=== PATIENT | female | born 1935 | race Caucasian/White ===

== ENCOUNTER 2016-11-22 15:54 | Observation (INO) | payer MEDICARE ==
[~2016-11-22] VITALS: Ht 157.5 cm; Wt 50.2 kg
[~2016-11-22 15:54] MED LIST: ASPI-973 PO; AZTH50T PO; CITA20TA11 PO; LISI-567 PO; PRD2.5T PO; PYRI60TA PO; SERT20OR6 PO
[2016-11-22 15:58] VITALS: BP 119/83; PULSE 84; RESP 18; O2SAT 98
[2016-11-22] MEDS ORDERED: 0.9% Sodium Chloride 1,000 ML IV ONE (17:39)
--- NOTE | 2016-11-22 18:03 | DRSVH ---
PROCEDURE: CT BRAIN WITHOUT CONTRAST ([id number]) INDICATIONS: intermittent dizziness with headache TECHNIQUE: Noncontrast 4.5 mm thick angled axial sections acquired from the foramen magnum to the vertex, with c oronal reformats. COMPARISON: None. FINDINGS: Image quality: Motion is present on multiple sequences, limiting areas of fine detail evaluation. CSF spaces: Basal cisterns are patent. No extra-axial fluid collections. The ventricles are symmet thanh in size and shape. Brain: No intracranial bleeds or masses. There is cerebral volume loss for age, with resultant vent ricular and sulcal prominence. There are periventricular and deep white matter chronic small vessel ischemic changes. There is intracranial internal carotid artery atherosclerosis. Skull and face: Calvarium and visualized facial bones appear intact, without suspicious lesions. Sinuses: Visualized sinuses and mastoids are clear. IMPRESSION: 1. No acute intracranial process. 2. Moderate atrophy and chronic microvascular ischemic changes. Dictated by: Marielena Mccarthy M.D. on 11/22/2016 at 18:00 Approved by: Marielena Mccarthy M.D. on 11/22/2016 at 18:01
--- NOTE | 2016-11-22 18:27 | ED.REPORT ---
HPI-General Illness Date of Service Nov 22, 2016 ED Provider: Elder Lozano DO 80-year-old female w/ a hx of HTN and chronic pain presents for evaluation of dizziness and near syncope associated with abdominal pain. Evidently she has been suffering with intermittent dizziness for at least 5 months. Today she went out to get the mail when she felt like she is going to pass out. She had a brief episode of confusion. Since then she has had diffuse abdominal pain that she thinks is related to prior thoracic spine fractures. She did not actually pass out. She did not have any chest pain or shortness of breath however she does note upper abdominal pain. The daughter notes intermittent episodes of confusion and slurred speech for months. Nursing Notes Stated Complaint: DIZZINESS,SLURRED SPEECH,ALL OVER PAIN Chief Complaint: General Complaint Nursing Notes Reviewed: Yes Allergies: Coded Allergies: Estrogens (Verified Allergy, Unknown, PASSED OUT, 11/22/16) codeine (Verified Allergy, Unknown, 11/22/16) medroxyprogesterone (Verified Allergy, Unknown, PASSED OUT, 11/22/16) hydromorphone (Verified Adverse Reaction, Mild, DIZZY AND N/V, 11/22/16) Scheduled Azathioprine (Azathioprine) 50 Mg Tablet 50 MG PO BID Paroxetine (Paroxetine) 10 Mg Tablet 10 MG PO HS Potassium Chloride (Potassium Chloride) 10 Meq Tab.er.prt 10 MEQ PO DAILY TAKE WITH FOOD Pyridostigmine [place] (Pyridostigmine [place]) 60 Mg Tablet 60 MG PO QID Scheduled PRN Ibuprofen (Ibuprofen) 200 Mg Capsule 200-400 MG PO BID PRN PRN For Headache Meclizine (Bonine) 25 Mg Tab.chew 25 MG PO TID PRN PRN VERTIGO/NAUSEA General Time Seen by MD: 18:24 Chief Complaint Dizziness Hx Obtained From: Patient Arrived By: Walk-in Sudden in Onset?: No Onset Occurred: More than a week ago... (5 months) Symptom Duration: Since onset Location: : Abdomen Quality: Painful Severity: Current: Moderate Severity: Maximum: Moderate Past Medical History Past Medical History Hypertension History of osteoporosis Myasthenia Gravis Past Surgical History Right hip replacement Wrist surgery Detached retina repair Reports: Appendectomy, Hysterectomy, Tonsillectomy Smoking History Never Smoker Social History Pt lives alone Alcohol Use: Denies alcohol use Drug Use: Denies drug use Other Social History: Good social support Ambulatory Status Independent Review of Systems Full Review of Systems Constitutional: Denies: Chills, Fever, Lethargy Eyes: Denies: Blurred left, Blurred right Ears / Nose / Throat: Denies: Hearing loss bilateral Respiratory: Denies: Dyspnea on exertion, Hemoptysis Cardiovascular: Denies: Chest pain, Dyspnea on exertion GI: Reports: Abdominal pain, Denies: Nausea, Vomiting Female: Denies: Dysuria Musculoskeletal: Reports: Back pain Hematologic: Denies Adenopathy Endocrine: Denies: Cold intolerance, Heat intolerance Neurologic: Reports: Confusion, Dizziness, Slurred speech, Denies: Abnormal movement, Focal weakness, Headache, Numbness Psychiatric: Reports: Change mental status (daughter notices occasional slurred speech and is becoming more forgetful.) Complete sys rev & neg: except as marked. Physical Exam Vital Signs Vital Signs Date Time Temp Pulse Resp B/P Pulse Ox O2 Delivery O2 Flow Rate FiO2 11/22/16 22:30 36.7 70 16 126/82 97 Room Air 11/22/16 19:59 36.6 76 18 122/80 96 Room Air 11/22/16 15:58 36.0 84 18 119/83 98 Room Air Initial VS: Reviewed, Vital signs normal Head / Eyes: Atraumatic, Normocephalic, PERRL ENT: Mucous membranes moist, Conjunctiva normal, No scleral icterus Neck: Supple, Non-tender, Full range of motion Respiratory: Breath sounds normal, Clear to auscultation, No respiratory distress Cardiovascular: Regular rate & rhythm, Heart sounds normal, Intact distal pulses Back: No CVA tenderness Extremities: Vascular intact, Neuro intact, No swelling, No tenderness Skin: Warm, Dry, No cyanosis Psychiatric: Mood/affect normal, Behavior normal General/Constitutional: Awake, Alert, No acute distress, Well appearing, Cooperative, Not toxic appearing Abdomen: Atraumatic, Soft, No guarding, No rebound, No distention Tenderness/Guarding/Rebound: Positive: Tender LUQ... (Mild), Tender RUQ... ( Mild), Tender diffuse Organomegaly / Mass / Hernia: Negative: Aortic bruit, Hepatomegaly, Splenomegaly Neurologic: Oriented X3, Speech NL, No motor deficits, No sensory deficits, CN II - XII intact, Cerebellar NL, Memory NL, Gait NL Interpretation & Diagnostics Lab Results Interpretation Result Diagram: 11/23/16 0538 11/23/16 0538 Test 11/22/16 17:19 11/22/16 18:25 Urine Color [place] (YELLOW) Urine Appearance Turbid (CLEAR,HAZY) Urine pH Color interference Urine Specific [place] 1.032 (1.003-1.035) Urine Protein Color interferencemg/dL Urine Glucose (UA) Color interferencemg/dL Urine Ketones Color interferencemg/dL Urine Occult Blood Color interference Urine Nitrite Color interference Urine Bilirubin Color interference Urine Urobilinogen Color interferencemg/dL Urine Leukocyte Esterase Color interference Urine RBC 0-2/hpf (0-2) Urine WBC 0-5/hpf (0-5) Urine Epithelial Cells Moderate/hpf (NONE-MOD) Urine Crystals Oxalic acid crystals (NONE Urine Bacteria Few/hpf (NONE-FEW) Urine Hyaline Casts None/lpf (NONE) Urine Granular Casts None seen (NONE SEEN) Urine Waxy Casts None seen (NONE SEEN) Urine Red Blood Cell Casts None seen (NONE SEEN) Urine White Blood Cell Casts None seen (NONE SEEN) Urine Mucus None seen (None Seen) Urine Trichomonas None seen (NONE SEEN) Urine Yeast None (NONE SEEN) Urinalysis Comment Urine Culture Reflexed Not indicated Hold Urine Received (Received) Erythrocyte Sedimentation Rate 2mm/hr (0-40) D-Dimer 0.57mg/L FEU (<0.50) Troponin T < 0.010ug/L (0.0-0.011) C-Reactive Protein < 0.1mg/dL (0.0-0.5) Procalcitonin 0.06ng/mL (0.00-0.08) Hold Tiwari Top Tube Received (Received) ECG Interpretation ECG Interpretation: Sinus rhythm rate 68 Q waves inferiorly Nonspecific ST changes Time: 19:09 Interpreted by: ED physician Normal ECG Interpretation: No acute ischemic changes CT Head Interpretation IMPRESSION: 1. No acute intracranial process. 2. Moderate atrophy and chronic microvascular ischemic changes. Dictated by: Marielena Mccarthy M.D. on 11/22/2016 at 18:00 Approved by: Marielena Mccarthy M.D. on 11/22/2016 at 18:01 Study: Head CT no contrast Interpretation / Wet Read by: Interpret - Radiologist CT Chest Interpretation IMPRESSION: 1. No evidence of pulmonary embolism. 2. Nonspecific subcentimeter pulmonary nodules as above. Recommend interval followup as below. Fleischner Society criteria for lung nodule followup. Nodule size (mm)Low-risk patientHigh-risk patient<=4No follow-up needed.Follow-up at 12 months; if no change, no further follow-up.>6-3Joeitq-uq CT at 12 months; if no change, no further follow-up needed.Initial follow-up CT at 6-12 months, then 18-24 months if no change.>6-8Initial follow-up CT at 6-12 months, then 18-24 months if no change.Initial follow-up CT at 3-6 months, then 9-12 months and 24 months if no change.>8Follow-up CT at 3,9 and 24 months or PET and/or biopsySame as for low-risk patientsNon-solid (ground-glass) or partly solid nodules may require longer follow-up to exclude indolent adenocarcinoma. Dictated by: Marielena Mccarthy M.D. on 11/22/2016 at 22:01 Approved by: Marileena Mccarthy M.D. on 11/22/2016 at 22:08 Study type: CT pulm angiogram Interpretation / Wet Read by: Interpret - Radiologist CT Abd / Pelvis Interpretation IMPRESSION: 1. Nonspecific appearance of thickening within portions of the colon as above. While this could be secondary to incomplete distention, early appearance of colitis cannot be excluded. 2. Unchanged appearance of cystic and dystrophic calcifications within the liver and spleen. Dictated by: Marielena Mccarthy M.D. on 11/22/2016 at 22:13 Approved by: Marielena Mccarthy M.D. on 11/22/2016 at 22:19 Study type: Abdominal CT IV contrast, Abdom CT oral contrast Interpretation / Wet Read by: Interpret - Radiologist Re-Eval/Medical Decision Source of Hx: Old records Time of Eval: 22:55 Re-Evaluation/Progress Note: Pt rechecked. Informed pt of need for admission. Pt understands and agrees with plan for admission. All questions addressed. Consultation : Referral / Consult Name: Kayli Schmitz DO Consulted With: Hospitalist Call Returned at: 00:20 [employer]: Will see patient, Agrees with eval, Agrees with plan, Accepts admit Counseled Regarding: Diagnosis, Lab results, Need for admission Discharge & Departure Primary Impression: Near syncope Additional Impression: Colitis Disposition: ADMITTED TO HOSPITAL Discharge Condition All VS Reviewed: Yes Condition: Stable Referrals: Kentrell Munoz MD (PCP) Tish Attestation Portions of this note were transcribed by Jerad Serrano. I, Dr. Lozano personally performed the history, physical exam and medical decision-making; I reviewed and confirmed the accuracy of the information in the transcribed note. Signed by Tish Jha, 11/22/16 - 1914 copies to: Kentrell Munoz MD, Todd P DO Nov 22, 2016 18:27 JERAD SERRANO Nov 22, 2016 19:09 Elder Lozano DO Nov 22, 2016 18:27 JERAD SERRANO Nov 22, 2016 19:09
[2016-11-22 18:37] LABS: BASOPHILS % (AUTO) 0.1 % (0-3); EOSINOPHILS % (AUTO) 0.3 % (0-5); MONOCYTES % (AUTO) 6.5 % (4-12); Mean Corpuscular Hemoglobin 30.1 pg (27.0-35.0); Mean Corpuscular Volume 85.3 fL (81-100); NEUTROPHILS % (AUTO) 82.1 % (40-74); Platelet Count 166 bil/L (150-400)
[2016-11-22 18:56] LABS: ERYTHROCYTE SEDIMENTATION RATE 2 mm/hr (0-40)
[2016-11-22 19:22] LABS: TROPONIN T < 0.010 ug/L (0.0-0.011)
[2016-11-22] MEDS: Ondansetron 2 mg/mL 2 mL Inj IVPUSH PRN ×3 (19:48→21:26)
[2016-11-22] MEDS: fentaNYL-PF 50 mCg/mL 2 mL Inj IVPUSH PRN ×4 (19:48→20:52)
[2016-11-22 19:59] VITALS: BP 122/80; PULSE 76; RESP 18; O2SAT 96
[2016-11-22] MEDS ORDERED: Iohexol 300 mg/mL 30 mL Inj PO ONE (20:15)
[2016-11-22] MEDS ORDERED: fentaNYL-PF 50 mCg/mL 2 mL Inj IVPUSH ONE (20:55)
--- NOTE | 2016-11-22 22:09 | DRSVH ---
PROCEDURE: CT ANGIO CHEST PULMONARY EMBOLISM ([id number]) INDICATIONS: near syncope, chest and abdominal pain TECHNIQUE: After the administration of intravenous contrast, 2 mm thick sections acquired from the pulmonary api beto to the posterior costophrenic angles. 3-dimensional maximum intensity projection (MIP) coronal a nd sagittal reformats were then acquired through the thorax. For radiation dose reduction, the follo wing was used: automated exposure control, adjustment of mA and/or kV according to patient size. COMPARISON: [facility], CT, CT ABD PELVIS WO CON, 10/08/2015, 14:28. [facility], CT, CT ABD PELVIS W CON, 11/22/2016, 21:26. [facility], CT, CHEST WITH CONTRAST, 07/20/2008, 15:40. FINDINGS: Image quality: Excellent. Pulmonary arteries: Pulmonary arteries are normal in size, and demonstrate no intraluminal filling d efects to suggest central pulmonary embolism. Lungs and pleura: 4 mm nodular opacity is present in the medial right upper lobe, new compared to estefania or exam, seen on series 3 image 13. Pulmonary bulla is present in the right middle lobe, unchanged. 4 mm nodule opacity present in the left lower lobe on series 3 image 30, new compared to prior exam. N o pleural effusions or pneumothorax. Central and peripheral airways are patent. Mediastinum: Heart size is normal, without pericardial effusion. No mediastinal or hilar adenopathy . Thoracic aorta is normal in caliber and enhancement. Esophagus is normal in caliber, without hiat al hernia. Bones and chest wall: No suspicious bony lesions. Ribs appear intact throughout. Thoracic compress ion deformity is unchanged. Thyroid gland is unremarkable. No axillary or supraclavicular adenopathy . Abdomen: Unchanged appearance of dystrophic hepatic calcifications and low attenuation foci within t he anterior aspect. Splenic calcification is present. Otherwise, visualized upper abdominal solid org ans appear normal in the early arterial phase of enhancement. IMPRESSION: 1. No evidence of pulmonary embolism. 2. Nonspecific subcentimeter pulmonary nodules as above. Recommend interval followup as below. Fleischner Society criteria for lung nodule followup. Nodule size (mm)Low-risk patientHigh-risk patient<=4No follow-up needed.Follow-up at 12 months; if no change, no further follow-up.>2-3Ppluee-ee CT at 12 months; if no change, no further follow-up neede d.Initial follow-up CT at 6-12 months, then 18-24 months if no change.>6-8Initial follow-up CT at 6- 12 months, then 18-24 months if no change.Initial follow-up CT at 3-6 months, then 9-12 months and 24 months if no change.>8Follow-up CT at 3,9 and 24 months or PET and/or biopsySame as for low-risk patientsNon-solid (ground-glass) or partly solid nodules may require longer follow-up to exclude indolent adenocarcinoma. Dictated by: Marielena Mccarthy M.D. on 11/22/2016 at 22:01 Approved by: Marielena Mccarthy M.D. on 11/22/2016 at 22:08
--- NOTE | 2016-11-22 22:20 | DRSVH ---
PROCEDURE: CT ABDOMEN AND PELVIS WITH CONTRAST ([id number]) INDICATIONS: near syncope, chest and abdominal pain TECHNIQUE: After the administration of oral and intravenous contrast, 5 mm thick sections acquired from the diap hragms to the symphysis. 5 mm thick coronal and sagittal reformats were performed. For radiation do se reduction, the following was used: automated exposure control, adjustment of mA and/or kV accordi ng to patient size. COMPARISON: [facility], CT, CT ABD PELVIS WO CON, 10/08/2015, 14:28. FINDINGS: Image quality: Excellent. ABDOMEN: Lung bases: Lung bases are clear. Heart size is normal. Solid organs: Liver and spleen are normal in size. Low-attenuation foci as well as areas of calcific ation within the liver are unchanged. Splenic calcification are unchanged. Gallbladder is unremarkab le. Biliary system is non-dilated. Pancreas enhances normally. No adrenal nodules. Kidneys are no rmal in size and enhancement, without hydronephrosis. Bilateral renal cysts are present. Peritoneum and bowel: Stomach, small bowel, and colon loops are nonobstructed. There is appearance o f mild thickening within distal portions of the descending colon and extending to the transverse and proximal descending colon. Minimal diverticula are present. No pericolonic inflammatory change is cheikh ntified. Nodes and vessels: No retroperitoneal or mesenteric adenopathy. Aorta and inferior vena cava are no rmal in caliber. Miscellaneous: No ventral hernias. PELVIS: Genitourinary: Bladder wall thickness is normal. Portions of the lower pelvis and bladder are not w ell evaluated secondary to metallic streak artifact from right hip arthroplasty. Miscellaneous: No inguinal hernias or adenopathy. Bones: No suspicious bony lesions. L3 compression deformity is present, unchanged. IMPRESSION: 1. Nonspecific appearance of thickening within portions of the colon as above. While this could be se condary to incomplete distention, early appearance of colitis cannot be excluded. 2. Unchanged appearance of cystic and dystrophic calcifications within the liver and spleen. Dictated by: Marielena Mccarthy M.D. on 11/22/2016 at 22:13 Approved by: Marielena Mccarthy M.D. on 11/22/2016 at 22:19
[2016-11-22 22:30] VITALS: BP 126/82; PULSE 70; RESP 16; O2SAT 97
[2016-11-22] MEDS ORDERED: MECL-114 PO (23:23)
[2016-11-22] MEDS ORDERED: PARO10TA2 PO (23:24)
[2016-11-22] MEDS ORDERED: POTA10TA38 PO (23:24)
[2016-11-22] MEDS ORDERED: IBUP200C PO (23:24)
[2016-11-23] VITALS (11 sets, daily range): BP systolic 131–178; BP diastolic 62–85; PULSE 57–76; RESP 16–18; O2SAT 95–98
[2016-11-23] MEDS ORDERED: Alum-Mag Hydrox-Simeth 30 mL Suspension PO PRN (00:45)
[2016-11-23] MEDS ORDERED: Polyethylene Glycol (PEG) 17 Gm Powder PO PRN (00:50)
[2016-11-23 01:22] LABS: APPEARANCE,URINE TURBID (CLEAR,HAZY); COLOR,URINE ORANGE (YELLOW); OCCULT BLOOD,URINE COLOR INTERFERENCE (NEGATIVE); PH,URINE COLOR INTERFERENCE (5.0-8.0); UROBILINOGEN,URINE COLOR INTERFERENCE mg/dL (NORMAL)
[2016-11-23] MEDS ORDERED: Potassium Chloride 20 mEq SR Tablet PO ONE (01:30)
--- NOTE | 2016-11-23 01:30 | PCM.HPMED ---
Subjective Date of Service Nov 23, 2016 Primary Provider: Admitting Physician: Kayli Schmitz DO Primary Care Physician: Kentrell Munoz MD Attending Physician: Kayli Schmitz DO Admit Status: From the Emergency Department, 23-Hour Observation, Remote Telemetry Chief Complaint: Dizziness, abdominal pain, back pain History of Present Illness: Ms. Alena Corbett is a 80-year-old female w/ a history of myasthenia gravis who presents to the ED accompanied by her daughter for near syncope and abdominal pain. Patient is very tangential and is a vague historian. Evidently she has been suffering with intermittent dizziness for at least 5 months, but it gets worse in the last 2 weeks. Patient reports that the onset is random and sudden. She describes the dizziness as if "my inside shaking." No spinning sensation. Sometimes she would sit on her bed and everything looks dark around her. A lot of the time, she felt like she would pass out, but it got better when she lie down.Patient admits to dizziness if she has to strain on the toilet. She does not think she has constipation. She admits to intermittent generalized headache and tinnitus. She has Meclizine, but she does not take it. About 2 weeks ago, she had a bad episode of near syncope that she vomited and almost fell to the ground. She has never actually passed out and has not had any vomiting since. Today she went out to get the mail when she felt like she is going to pass out again. Her neighbor had to take her to the house and told her daughter that the patient's gait has become very unsteady lately. Patient admits that she has not been eating well because she can no longer cook without feeling nausea. However, her appetite is good when she eats at the restaurant with her daughter. Patient also reports diffuse abdominal pain, worst at the epigastric area, that radiate to her chest, left rib, and back in the last few months. She thinks it might be related to prior thoracic spine fractures. She denies heartburn, but states the abdominal pain is burning. She denies SOB, diarrhea, cough, fever, or chills. The daughter notes intermittent episodes of confusion and slurred speech for months. Patient used to have IVIG every 5 weeks for her MG, but currently only takes Azathioprine 50mg BID and Pyridostigmine 60mg daily. Her MG symptoms are well control. She no longer takes Prednisone due to the osteoporosis. She denies history of HTN. Patient has a walker at home, but does not use it. In the ED, patient had an episode of vomiting after she had the oral contrast for CT. Vital signs stable with BP 122/80. Labs only significant for potassium of 3.0. D-dimer 0.57, and thus a CT angio was done to rule out PE. EKG negative for ischemic changes. CXR. CT head negative for acute intracranial process. CT abd/pelvis revealed within distal portions of the descending colon and extending to the transverse and proximal descending colon. Minimal diverticula are present. No pericolonic inflammatory change is identified. She was given one dose of Fentanyl for pain and admitted for near syncope and colitis. Review of Systems: A comprehensive review of systems was conducted with the patient and found to be negative except as above in the History of Present Illness. Allergies Coded Allergies: Estrogens (Verified Allergy, Unknown, PASSED OUT, 11/22/16) codeine (Verified Allergy, Unknown, 11/22/16) medroxyprogesterone (Verified Allergy, Unknown, PASSED OUT, 11/22/16) hydromorphone (Verified Adverse Reaction, Mild, DIZZY AND N/V, 11/22/16) Home Medications Reports taking: Azathioprine (Azathioprine) 50 Mg Tablet 50 MG PO BID Pyridostigmine [place] (Pyridostigmine [place]) 60 Mg Tablet 60 MG PO QID PMH History of osteoporosis Myasthenia Gravis Surgical History Right hip replacement Wrist surgery Detached retina repair Hysterectomy Tonsillectomy Family History Parents of old age. Social History Hx Alcohol Use: No Hx Substance Use: No Hx Tobacco Use: No Smoking Status: Never Smoker Living Arrangement: Alone Additional Information Patient lives at home alone and used to be very independent, but it is getting harder now. Her daughters visit her often. PCP is Dr. Kentrell Munoz and neurologist is Dr. Baljeet Ramirez. Exam Vital Signs Vital Sign - Last Date Time Temp Pulse Resp B/P Pulse Ox O2 Delivery O2 Flow Rate FiO2 11/22/16 22:30 36.7 70 16 126/82 97 Room Air Intake and Output 11/22/16 11/22/16 11/23/16 Cumulative From/Thru 15:00 23:00 07:00 11/22/16 15:58 - 3/31/17 18:26 Intake Total 1000 ml 1000 ml Balance 1000 ml 1000 ml Intake IV Total 1000 ml 1000 ml Exam General: No acute distress, well-developed, well-nourished, appropriately interactive HEENT: Normocephalic, atraumatic. External ears without defect. Bilateral cerumen impaction. Pupils equal, round, and reactive to light and accommodation. Anicteric sclerae, moist conjunctivae, and no lid lag. Oropharynx free of erythema and cobble stoning with dry mucosa. Neck: Supple with full range of motion. No jugular venous distension. No bruits. No lymphadenopathy or thyromegaly. Cardiovascular: Regular rate and rhythm with no murmurs, rubs, or gallops appreciated Pulmonary: Clear to auscultation bilaterally with no crackles, wheezes, or rhonchi. Normal respiratory effort with no use of accessory muscles. Abdomen: Bowel tones present. Soft, nondistended. Moderate tenderness to palpation throughout, worse at the epigastric area. No guarding or rebound tenderness. No hepatosplenomegaly or masses appreciated. Extremities: No clubbing, cyanosis, edema, or lymphadenopathy appreciated. Skin: Normal temperature, dry skin turgor, and texture; no rash, ulcers, or subcutaneous nodules appreciated. MSK: left rib cage and mid back very tender to palpation. Neurological: Cranial nerves grossly intact. Normal muscle strength, tone, and bulk. Reflexes, coordination, and sensory function within normal limits. Gait was not tested. Psychiatric: Normal mood and affect. Alert and oriented to person, place, and time. Tangential thought process. Lab and Diagnostics Result Diagram: 11/22/16182411/22/161824 X-Rays, CTs and MRIs PROCEDURE: CT BRAIN WITHOUT CONTRAST IMPRESSION: 1. No acute intracranial process. 2. Moderate atrophy and chronic microvascular ischemic changes. Dictated by: Marielena Mccarthy M.D. on 11/22/2016 at 18:00 Approved by: Marielena Mccarthy M.D. on 11/22/2016 at 18:01 PROCEDURE: CT ANGIO CHEST PULMONARY EMBOLISM IMPRESSION: 1. No evidence of pulmonary embolism. 2. Nonspecific subcentimeter pulmonary nodules as above. Recommend interval followup as below. Fleischner Society criteria for lung nodule followup. Nodule size (mm)Low-risk patientHigh-risk patient<=4No follow-up needed.Follow- up at 12 months; if no change, no further follow-up.>[id number]-af CT at 12 months; if no change, no further follow-up needed.Initial follow-up CT at 6-12 months, then 18-24 months if no change.>6-8Initial follow-up CT at 6-12 months , then 18-24 months if no change.Initial follow-up CT at 3-6 months, then 9-12 months and 24 months if no change.>8Follow-up CT at 3,9 and 24 months or PET and/or biopsySame as for low-risk patientsNon-solid (ground-glass) or partly solid nodules may require longer follow-up to exclude indolent adenocarcinoma. Dictated by: Marielena Mccarthy M.D. on 11/22/2016 at 22:01 Approved by: Marielena Mccarthy M.D. on 11/22/2016 at 22:08 PROCEDURE: CT ABDOMEN AND PELVIS WITH CONTRAST IMPRESSION: 1. Nonspecific appearance of thickening within portions of the colon as above. While this could be secondary to incomplete distention, early appearance of colitis cannot be excluded. 2. Unchanged appearance of cystic and dystrophic calcifications within the liver and spleen. Dictated by: Marielena Mccarthy M.D. on 11/22/2016 at 22:13 Approved by: Marielena Mccarthy M.D. on 11/22/2016 at 22:19 12-lead ECG Sinus rhythm rate 68 Q waves inferiorly Nonspecific ST changes Assessment & Plan 80-year-old female w/ a history of myasthenia gravis who presents to the ED accompanied by her daughter for near syncope and abdominal pain onset a few months ago and was found to have colitis. 1. Near syncope, acute, present on admission, active. - Likely secondary to orthostatic hypotension (dehydration and deconditioning) and vasovagal response (straining). DDx include but not limited to cardiovascular (arrhythmia, valvular disease) or TIA. - Check orthostatic BP - Encourage oral hydration. Patient admits that she does not drink much water and has not been able to care for herself. - germination worker consult for home attendant. - Advised the patient to keep her BM soft and regular to prevent straining. - Consider sending home with stool softeners. - EKG did not reveal any arrhythmia. Monitor Telemetry. - No murmur appreciated on exam, but will check Echo for any structural abnormalities. - CT head was negative for acute intracranial process, but there is chronic microvascular ischemic changes noted. - High fall risk. Will have PT evaluate in the morning. Patient was encouraged to use her walker, especially given her history of myasthenia gravis. 2. Epigastric abdominal pain, chronic, present on admission, active. - Mild colitis of the descending colon and extending to the transverse and proximal descending colon noted on CT abdomen/pelvis. - Suspect a component of GERD as well. - Will start on Protonix PO 40mg daily. - No sign of infection, thus antibiotic is not indicated at this time. - Pain control with APAP and Fentanyl as needed. Patient reports intolerance to Hydromorphone and codeine. - Continue to monitor symptoms and signs. 3. Hypokalemia, acute, present on admission, active. - Will replete as needed and monitor BMP daily. 4. Abnormal CT chest, active. - 4 mm nodular opacity is present in the medial right upper lobe, new compared to prior exam. - Pulmonary bulla is present in the right middle lobe, unchanged. - 4 mm nodule opacity present in the left lower lobe on series 3 image 30, new compared to prior exam. - Recommend to have CT follow up in 12 months as outpatient. 5. Myasthenia Gravis, chronic, presume stable. - Resume home meds of Azathioprine and Pyridostigmine - Follow up with neurologist as outpatient. - Needs to use walker for unsteady gait. 6. Depression, chronic, presume stable. - Resume home Paroxetine. CODE: DNR/DNI. Medications, including antibiotics, are ok. Patient is admitted under observation status with expected length of stay less than 2 midnights due to severity of presenting symptoms, risk of adverse event, and complexity of treatment plan. Pain Evaluation: Adequate Pain Control GI Prophylaxis: Proton Pump Inhibitor VTE Prophylaxis: Sub-Q Heparin (Unfractionated) Resuscitation Status: DNR/DNI:Do Not Resuscitate/Intubate Attending Statement The patient was seen and examined together with house staff on 11/23/2016 and I agree with the history, exam and plan as outlined in the note above. copies to: Kentrell Munoz MD, Ngochanh H DO Nov 23, 2016 01:30 Kayli Schmitz DO Nov 23, 2016 04:20
[2016-11-23] MEDS: Heparin 5,000 Unit/mL Inj SUBQ SCH ×3 (02:29→16:52)
[2016-11-23] MEDS: fentaNYL-PF 50 mCg/mL 2 mL Inj IVPUSH PRN ×2 (02:29→10:14)
--- NOTE | 2016-11-23 03:42 | NUR ---
Admit Patient arrived to room 1016 around 0130. Able to walk from ER stretcher to [facility] bed with SBA. Gait steady but c/o dizziness. A&Ox3, answering questions appropriately. IV patent and flushing. Tele placed. Ortho VS completed. Complaining of pain to abdomen and lower back. Received Fentanyl 25 mcg IVP with effective results, currently resting with eyes closed. Admit and med rec completed with patient and daughter. Oriented to room and call light.
[2016-11-23] MEDS: Ondansetron 2 mg/mL 2 mL Inj IVPUSH PRN (06:20)
[2016-11-23 06:21] LABS: BASOPHILS % (AUTO) 0.3 % (0-3); EOSINOPHILS % (AUTO) 0.6 % (0-5); MONOCYTES % (AUTO) 8.3 % (4-12); Mean Corpuscular Hemoglobin 30.4 pg (27.0-35.0); Mean Corpuscular Volume 86.4 fL (81-100); NEUTROPHILS % (AUTO) 74.4 % (40-74); Platelet Count 134 bil/L (150-400)
[2016-11-23] MEDS ORDERED: Pantoprazole 40 mg ER24 Tablet PO SCH (07:30)
[2016-11-23] MEDS: Pantoprazole 40 mg ER24 Tablet PO SCH ×2 (10:09→20:59)
--- NOTE | 2016-11-23 12:29 | NUR ---
Evaluation completed. Please go to "Notes" then click on "Assessments and Notes" (bottom left corner of screen). Then select appropriate discipline tab on top of screen.
[2016-11-23] MEDS: 0.9% NaCl + KCl 20 mEq/L 1,000 ML IV SCH ×2 (12:51→23:05)
--- NOTE | 2016-11-23 12:57 | PCM.PNMED ---
Subjective Date of Service Nov 23, 2016 Subjective Patient continues to complain of dizziness although her symptoms today are very vague. She states that her back feels like it is moving. And the dizziness that brought her to the hospital is hard for her disease to describe. She denies any true vertigo. States when the dizziness comes on that she has to lay down or she is going to fall down. She has no associated diaphoresis no fever, no nausea, no vomiting. She has no other new complaints. Exam Vital Signs Vital Sign - Last Date Time Temp Pulse Resp B/P Pulse Ox O2 Delivery O2 Flow Rate FiO2 11/23/16 09:58 36.1 64 16 131/62 96 Room Air Intake and Output 11/22/16 11/22/16 11/23/16 Cumulative From/Thru 15:00 23:00 07:00 11/22/16 15:58 - 11/23/16 05:41 Intake Total 1000 ml 100 ml 1100 ml Output Total 0 ml 0 ml Balance 1000 ml 100 ml 1100 ml Intake Oral 100 ml 100 ml IV Total 1000 ml 1000 ml Output Urine Total 0 ml 0 ml # Bowel Movements 0 0 Exam General: Patient is laying supine in bed and is comfortable. Returned on the bright light she kept her eyes closed or barely open them as she appears to have some photophobia. Although, the room was quite bright with the bright lights on. And she had been laying in the dark. HEENT: Head is atraumatic and normocephalic. Eyes: Pupils are equally round and reactive to light and accommodation. Extraocular muscles are intact. Sclera are white, anicteric. Subconjunctival mucosa is pink. Ears and nose are unremarkable. Oropharynx: There are no mucosal lesions, there is no thrush , there is no pharyngitis. Neck: Is supple, there are no nodes, or masses or tenderness. Chest: Is clear to auscultation and percussion. There are no rales, rhonchi, wheezes or rubs. Heart: Rate, rhythm is regular. There is no appreciable murmur, rub or gallop. Although, heart tones are distant. Abdomen: Good bowel sounds are present. Abdomen is soft, nonspecific tenderness. There was no rebound tenderness and no guarding. There is no organomegaly or masses were appreciated. Extremities: Are symmetrical and well perfused. There is no edema, there is no cellulitis, no rash. Neurologic: There are no focal neurological deficits. Cranial nerves II through XII are intact. There are no sensory or motor deficits. Psychiatric: Patients mood is calm and shows no sign of agitation. Genital: Deferred Rectal: Deferred Lab and Diagnostics Result Diagram: 11/23/1653711/23/16537 X-Rays, CTs and MRIs PROCEDURE: CT BRAIN WITHOUT CONTRAST IMPRESSION: 1. No acute intracranial process. 2. Moderate atrophy and chronic microvascular ischemic changes. Dictated by: Marielena Mccarthy M.D. on 11/22/2016 at 18:00 Approved by: Marielena Mccarthy M.D. on 11/22/2016 at 18:01 PROCEDURE: CT ANGIO CHEST PULMONARY EMBOLISM IMPRESSION: 1. No evidence of pulmonary embolism. 2. Nonspecific subcentimeter pulmonary nodules as above. Recommend interval followup as below. Fleischner Society criteria for lung nodule followup. Nodule size (mm)Low-risk patientHigh-risk patient<=4No follow-up needed.Follow- up at 12 months; if no change, no further follow-up.>1-3Rvmooh-mm CT at 12 months; if no change, no further follow-up needed.Initial follow-up CT at 6-12 months, then 18-24 months if no change.>6-8Initial follow-up CT at 6-12 months , then 18-24 months if no change.Initial follow-up CT at 3-6 months, then 9-12 months and 24 months if no change.>8Follow-up CT at 3,9 and 24 months or PET and/or biopsySame as for low-risk patientsNon-solid (ground-glass) or partly solid nodules may require longer follow-up to exclude indolent adenocarcinoma. Dictated by: Marielena Mccarthy M.D. on 11/22/2016 at 22:01 Approved by: Marielena Mccarthy M.D. on 11/22/2016 at 22:08 PROCEDURE: CT ABDOMEN AND PELVIS WITH CONTRAST IMPRESSION: 1. Nonspecific appearance of thickening within portions of the colon as above. While this could be secondary to incomplete distention, early appearance of colitis cannot be excluded. 2. Unchanged appearance of cystic and dystrophic calcifications within the liver and spleen. Dictated by: Marielena Mccarthy M.D. on 11/22/2016 at 22:13 Approved by: Marielena Mccarthy M.D. on 11/22/2016 at 22:19 12-lead ECG Sinus rhythm rate 68 Q waves inferiorly Nonspecific ST changes Assessment & Plan The patient is a 80-year-old female w/ a history of myasthenia gravis who presents to the ED accompanied by her daughter for near syncope and abdominal pain. The abdominal pain onset was a few months ago and the patient was found to have colitis. 1. Near syncope, acute, present on admission, active. - Likely secondary to orthostatic hypotension (dehydration and deconditioning) and vasovagal response (straining). According to the patient's 2 daughters the patient very rarely drinks any water. - The differential diagnosis includes, but not limited to, cardiovascular ( arrhythmia, valvular disease) or TIA. - Check orthostatic BP - We will restart IV fluids normal saline and 20 mg of KCl at 80-100 mL an hour - Encourage oral hydration. Patient admits that she does not drink much water and has not been able to care for herself. - agricultural service worker consult for sales expert [employer]. - Advised the patient to keep her BM soft and regular to prevent straining. - Consider sending home with stool softeners. - EKG did not reveal any arrhythmia. We will continue to monitor on Telemetry. - There was no murmur appreciated on exam, but will check Echo for any structural abnormalities. - CT head was negative for acute intracranial process, but there is chronic microvascular ischemic changes noted. - High fall risk. Will have PT evaluate in the morning. Patient was encouraged to use her walker, especially given her history of myasthenia gravis. 2. Epigastric abdominal pain, chronic, present on admission, active. - Mild colitis of the descending colon and extending to the transverse and proximal descending colon noted on CT abdomen/pelvis. - Suspect a component of GERD as well. - Will start on Protonix PO 40mg daily. - No sign of infection, thus antibiotic is not indicated at this time. - Pain control with APAP and Fentanyl as needed. Patient reports intolerance to Hydromorphone and codeine. - Continue to monitor symptoms and signs. 3. Hypokalemia, acute, present on admission, active. - Will replete as needed and monitor CMP daily. 4. Abnormal CT chest, active. - 4 mm nodular opacity is present in the medial right upper lobe, new compared to prior exam. - Pulmonary bulla is present in the right middle lobe, unchanged. - 4 mm nodule opacity present in the left lower lobe on series 3 image 30, new compared to prior exam. - Recommend to have CT follow up in 12 months as outpatient. - I have discussed these findings with the patient's 2 daughters at bedside. 5. Myasthenia Gravis, chronic, presume stable. - Resume home meds of Azathioprine and Pyridostigmine - Follow up with neurologist as outpatient. - Needs to use walker for unsteady gait. 6. Depression, chronic, presume stable. - Resume home Paroxetine. CODE: DNR/DNI. Medications, including antibiotics, are ok. Disposition: The patient to continue to be monitored for another 24 hours with IV fluids as well. If there is improvement may consider discharge in a.m. Pain Evaluation: Adequate Pain Control GI Prophylaxis: Proton Pump Inhibitor VTE Prophylaxis: Sub-Q Heparin (Unfractionated) VTE Mechanical Devices: Intermittant Pneumatic CD Resuscitation Status: DNR/DNI:Do Not Resuscitate/Intubate Iván Agarwal MD Nov 23, 2016 12:57
--- NOTE | 2016-11-23 15:09 | NUR ---
Social Work- Initial Assessment Data: See Initial Assessment. Pt is a 80 year old female admitted under observation 11/22/16 for near syncope, colitis, vomiting per H&P. Pt's insurance is [employer]. Pts PCP is Kentrell Munoz MD. SW met with pt and daughter Virgen ([phone]) at bedside regarding discharge plan, SW role explained. Pt alert and oriented, but seemed confused during parts of the conversation. Pt resides in [place] in a home alone where she remains independent with her ADLs. Pt's daughter Virgen is involved in pt's life and care, including driving her to the grocery store and cleaning her home. Pt uses no DME, though she does have a walker at home. Pt does not drive. Pt has no HH history, pt has SNF history at [facility] after a hip replacement. Pt has no LTC or VA benefits. Pt has no DPOA on file, SW provided paperwork to pt and daughter. PT evaluated pt today, recommending outpt PT if pt's dizziness continues. Pt to discharge home with daughter to transport via POV. No anticipated discharge needs, SW will continue to follow. Assessment: Pt who is independent at base. Plan: Pt to discharge home with daughter to transport via POV. PT recommending outpt PT if pt's dizziness continues after hospitalization. No anticipated discharge needs, SW will continue to follow. MARJORIE Goodman Addendum: 11/23/16 at 1510 by KEATON LIN SS Amended: Links added.
--- NOTE | 2016-11-23 15:36 | NUR ---
LEILANI explained and signed, Virgen, pt's daughter at bedside during explanation. Copy of LEILANI and Medicare self administered medication information given to pt.
--- NOTE | 2016-11-23 19:32 | NUR ---
Dizziness/activity Pt complaining of dizziness with movement, able to get up to bathroom SBA. Tylenol and Fentanyl administered for GARCIA, stomach and back pain. no complaints of nausea. Pt stated food and drink hurt her belly.
[2016-11-23] MEDS ORDERED: PARoxetine 20 mg Tablet PO SCH (21:00)
[2016-11-24 00:06] VITALS: BP 148/81; PULSE 64; RESP 16; O2SAT 97
[2016-11-24] MEDS: Heparin 5,000 Unit/mL Inj SUBQ SCH ×3 (01:24→16:42)
[2016-11-24] MEDS: Ondansetron 2 mg/mL 2 mL Inj IVPUSH PRN (02:22)
[2016-11-24 05:19] VITALS: PULSE 57
--- NOTE | 2016-11-24 05:32 | NUR ---
Pain Pain adequately controlled with Tylenol prn. Continues to complain of dizzy feeling in head and body with ambulation, slowly resolves once in bed. Hourly rounding ongoing.
[2016-11-24 06:26] VITALS: BP 151/76; PULSE 64; RESP 16; O2SAT 99
[2016-11-24] MEDS: Pantoprazole 40 mg ER24 Tablet PO SCH (07:52)
[2016-11-24] MEDS: 0.9% NaCl + KCl 20 mEq/L 1,000 ML IV SCH (08:04)
[2016-11-24 08:25] VITALS: PULSE 55
[2016-11-24 10:08] LABS: BASOPHILS % (AUTO) 0.4 % (0-3); EOSINOPHILS % (AUTO) 1.6 % (0-5); MONOCYTES % (AUTO) 7.8 % (4-12); Mean Corpuscular Hemoglobin 30.2 pg (27.0-35.0); Mean Corpuscular Volume 85.5 fL (81-100); NEUTROPHILS % (AUTO) 72.4 % (40-74); Platelet Count 119 bil/L (150-400)
[2016-11-24 10:38] LABS: Magnesium 1.5 mg/dL (1.6-2.6)
[2016-11-24 10:55] VITALS: BP 171/74; PULSE 61; RESP 15; O2SAT 97
[2016-11-24] MEDS ORDERED: Magnesium Sulf 4 Gm/100 mL H2O 4 GM in IV Premix 1 EACH IV ONE (11:45)
--- NOTE | 2016-11-24 14:31 | NUR ---
Social Work-Readiness for Discharge Data: EMR reviewed. Pt on day 2 of hospitalization for near syncope, colitis, vomiting per H&P. PT evaluated pt, recommending outpt PT if pt's dizziness continues. SW spoke with pt's granddaughter Dana by phone ([phone]) this AM regarding pt's discharge plan, explained recommendation of outpt PT and potential for home care to come to pt's home and assist with ADLs if needed. Pt to discharge home with granddaughter to transport via POV. No anticipated discharge needs, SW will continue to follow. Assessment: Pt who is independent at base. Plan: Pt to discharge home with granddaughter to transport via POV. PT recommending outpt PT if pt's dizziness continues after hospitalization. No anticipated discharge needs, SW will continue to follow. Jody Allen MSW
--- NOTE | 2016-11-24 14:36 | PCM.DIMED ---
Discharge Instructions Date of Service Nov 24, 2016 Dates of Hospitalization Nov 22, 2016 at 23:55 Discharge Diagnosis Discharge Diagnosis Dehydration with dizziness Diet Heart Healthy Activity No restrictions (The patient may resume usual activity as tolerated.) Call your provider Fever or Chills, Shortness of breath, Bleeding, Chest pain, Vomitting, Excessive diarrhea, Weakness (unilateral), Other Patient Instructions Follow-up Provider: Kentrell Munoz MD Follow-up with PCP in: 1 week Iván Agarwal MD Nov 24, 2016 14:36
[2016-11-24] MEDS ORDERED: POLY17PO6 PO (14:38)
[2016-11-24] MEDS ORDERED: PANT40TA3 PO (14:38)
--- NOTE | 2016-11-24 15:42 | NUR ---
Social Work-Discharge Data: EMR reviewed. Pt on day 2 of hospitalization for near syncope, colitis, vomiting per H&P. Pt to discharge today. PT evaluated pt, recommending outpt PT if pt's dizziness continues. Pt to discharge home with granddaughter to transport via POV. No discharge needs. Assessment: [place] independent [place]. Plan: Pt to discharge home with granddaughter to transport via POV. PT recommending outpt PT if pt's dizziness continues after hospitalization. No discharge needs. MARJORIE Goodamn
--- NOTE | 2016-11-24 17:02 | NUR ---
discharge patient discharged with grand daughter accompanied via wheel chair with nursing staff. Reviewed discharge instructions and new prescriptions with patient and grand daughter and patient signed paper work and understood. per grand daughter patient will be going home and stay with her daughter. denies pain or discomfort prior to discharge. patient' s daughter will call PCP and schedule the appointment per discharge instructions. Written care notes provided. discontinued IV with out difficulty.
--- NOTE | 2016-11-25 00:06 | PCM.DC.MED ---
Discharge Summary Date of Service Nov 24, 2016 Dates of Hospitalization Date of Hospital Admission Nov 22, 2016 at 23:55 Date of Discharge: Nov 24, 2016 Providers: Admitting Physician: Kayli Schmitz DO Primary Care Physician: Kenterll Munoz MD Attending Physician: Kayli Schmitz DO Diagnosis at Time of Discharge Diagnosis at Time of Discharge Dehydration with dizziness Procedures XRay, CTs & MRIs PROCEDURE: CT BRAIN WITHOUT CONTRAST IMPRESSION: 1. No acute intracranial process. 2. Moderate atrophy and chronic microvascular ischemic changes. Dictated by: Marielena Mccarthy M.D. on 11/22/2016 at 18:00 Approved by: Marielena Mccarthy M.D. on 11/22/2016 at 18:01 PROCEDURE: CT ANGIO CHEST PULMONARY EMBOLISM IMPRESSION: 1. No evidence of pulmonary embolism. 2. Nonspecific subcentimeter pulmonary nodules as above. Recommend interval followup as below. Fleischner Society criteria for lung nodule followup. Nodule size (mm)Low-risk patientHigh-risk patient<=4No follow-up needed.Follow- up at 12 months; if no change, no further follow-up.>8-9Roxuih-lh CT at 12 months; if no change, no further follow-up needed.Initial follow-up CT at 6-12 months, then 18-24 months if no change.>6-8Initial follow-up CT at 6-12 months , then 18-24 months if no change.Initial follow-up CT at 3-6 months, then 9-12 months and 24 months if no change.>8Follow-up CT at 3,9 and 24 months or PET and/or biopsySame as for low-risk patientsNon-solid (ground-glass) or partly solid nodules may require longer follow-up to exclude indolent adenocarcinoma. Dictated by: Marielena Mccarthy M.D. on 11/22/2016 at 22:01 Approved by: Marielena Mccarthy M.D. on 11/22/2016 at 22:08 PROCEDURE: CT ABDOMEN AND PELVIS WITH CONTRAST IMPRESSION: 1. Nonspecific appearance of thickening within portions of the colon as above. While this could be secondary to incomplete distention, early appearance of colitis cannot be excluded. 2. Unchanged appearance of cystic and dystrophic calcifications within the liver and spleen. Dictated by: Marielena Mccarthy M.D. on 11/22/2016 at 22:13 Approved by: Marielena Mccarthy M.D. on 11/22/2016 at 22:19 ECG 12 Lead Sinus rhythm rate 68 Q waves inferior[address] Nonspecific ST changes Brief History Ms. Alena Corbett is a 80-year-old female w/ a history of myasthenia gravis who presents to the ED accompanied by her daughter for near syncope and abdominal pain. Patient is very tangential and is a vague historian. Evidently she has been suffering with intermittent dizziness for at least 5 months, but it gets worse in the last 2 weeks. Patient reports that the onset is random and sudden. She describes the dizziness as if "my inside shaking." No spinning sensation. Sometimes she would sit on her bed and everything looks dark around her. A lot of the time, she felt like she would pass out, but it got better when she lie down.Patient admits to dizziness if she has to strain on the toilet. She does not think she has constipation. She admits to intermittent generalized headache and tinnitus. She has Meclizine, but she does not take it. About 2 weeks ago, she had a bad episode of near syncope that she vomited and almost fell to the ground. She has never actually passed out and has not had any vomiting since. Today she went out to get the mail when she felt like she is going to pass out again. Her neighbor had to take her to the house and told her daughter that the patient's gait has become very unsteady lately. Patient admits that she has not been eating well because she can no longer cook without feeling nausea. However, her appetite is good when she eats at the restaurant with her daughter. Patient also reports diffuse abdominal pain, worst at the epigastric area, that radiate to her chest, left rib, and back in the last few months. She thinks it might be related to prior thoracic spine fractures. She denies heartburn, but states the abdominal pain is burning. She denies SOB, diarrhea, cough, fever, or chills. The daughter notes intermittent episodes of confusion and slurred speech for months. Patient used to have IVIG every 5 weeks for her MG, but currently only takes Azathioprine 50mg BID and Pyridostigmine 60mg daily. Her MG symptoms are well control. She no longer takes Prednisone due to the osteoporosis. She denies history of HTN. Patient has a walker at home, but does not use it. In the ED, patient had an episode of vomiting after she had the oral contrast for CT. Vital signs stable with BP 122/80. Labs only significant for potassium of 3.0. D-dimer 0.57, and thus a CT angio was done to rule out PE. EKG negative for ischemic changes. CXR. CT head negative for acute intracranial process. CT abd/pelvis revealed within distal portions of the descending colon and extending to the transverse and proximal descending colon. Minimal diverticula are present. No pericolonic inflammatory change is identified. She was given one dose of Fentanyl for pain and admitted for near syncope and colitis. Patient was in under observation to the hospitalist service for further evaluation and treatment. Hospital Course The patient is a 80-year-old female w/ a history of myasthenia gravis who presents to the ED accompanied by her daughter for near syncope and abdominal pain. The abdominal pain onset was a few months ago and the patient was found to have colitis. 1. Near syncope, acute, present on admission, active. - Likely secondary to orthostatic hypotension (dehydration and deconditioning) and vasovagal response (straining). According to the patient's 2 daughters the patient very rarely drinks any water. - The differential diagnosis includes, but not limited to, cardiovascular ( arrhythmia, valvular disease) or TIA. - We checked orthostatic BPs with no significant findings - We gave IV fluids normal saline and 20 mg of KCl at 80-100 mL an hour - Encourage oral hydration. Patient admits that she does not drink much water and has not been able to care for herself. - family preservation caseworker consult for supervisor home economics. - Advised the patient to keep her BM soft and regular to prevent straining. - Consider sending home with stool softeners. - EKG did not reveal any arrhythmia. We continued to monitor on Telemetry which revealed no arrhythmia. - There was no murmur appreciated on exam, but we ordered an Echo for any structural abnormalities, this was not available over the weekend apparently and will need to be done as an outpatient. - CT head was negative for acute intracranial process, but there is chronic microvascular ischemic changes noted. - High fall risk. Will have PT evaluate in the morning. Patient was encouraged to use her walker, especially given her history of myasthenia gravis. 2. Epigastric abdominal pain, chronic, present on admission, active. - Mild colitis of the descending colon and extending to the transverse and proximal descending colon noted on CT abdomen/pelvis. - Suspect a component of GERD as well. - We will continue on on Protonix PO 40mg daily. - No sign of infection, thus antibiotic is not indicated at this time. - Pain control with APAP and Fentanyl as needed. Patient reports intolerance to Hydromorphone and codeine. - Continue to monitor symptoms and signs. 3. Hypokalemia, acute, present on admission, active. - We repleted as needed and monitor CMP daily. 4. Abnormal CT chest, active. - 4 mm nodular opacity is present in the medial right upper lobe, new compared to prior exam. - Pulmonary bulla is present in the right middle lobe, unchanged. - 4 mm nodule opacity present in the left lower lobe on series 3 image 30, new compared to prior exam. - Recommend to have CT follow up in 12 months as outpatient. - I have discussed these findings with the patient's 2 daughters at bedside. 5. Myasthenia Gravis, chronic, presume stable. - Continue home meds of Azathioprine and Pyridostigmine - Follow up with neurologist as outpatient. - Needs to use walker for unsteady gait. 6. Depression, chronic, presume stable. - Resume home Paroxetine. CODE: DNR/DNI. Medications, including antibiotics, are ok. Disposition: The patient is to be discharged home today with continued workup as an outpatient. Exam Vital Signs (Last) Date Time Temp Pulse Resp B/P Pulse Ox O2 Delivery O2 Flow Rate FiO2 11/24/16 12:32 Room Air 11/24/16 10:55 36.3 61 15 171/74 97 Exam General: Patient is laying supine in bed and is comfortable. She is very talkative and has no new complaints The patient is much more active and is able to ambulate to the bathroom without any dizziness. HEENT: Head is atraumatic and normocephalic. Eyes: Pupils are equally round and reactive to light and accommodation. Extraocular muscles are intact. Sclera are white, anicteric. Subconjunctival mucosa is pink. Ears and nose are unremarkable. Oropharynx: There are no mucosal lesions, there is no thrush , there is no pharyngitis. Neck: Is supple, there are no nodes, or masses or tenderness. Chest: Is clear to auscultation and percussion. There are no rales, rhonchi, wheezes or rubs. Heart: Rate, rhythm is regular. There is no appreciable murmur, rub or gallop. Although, heart tones are distant. Abdomen: Good bowel sounds are present. Abdomen is soft, nonspecific tenderness. There was no rebound tenderness and no guarding. There is no organomegaly or masses were appreciated. Extremities: Are symmetrical and well perfused. There is no edema, there is no cellulitis, no rash. Neurologic: There are no focal neurological deficits. Cranial nerves II through XII are intact. There are no sensory or motor deficits. Psychiatric: Patients mood is calm and shows no sign of agitation. Genital: Deferred Rectal: Deferred Test 11/22/16 17:19 11/22/16 18:25 11/24/16 09:40 Urine Color Parsons (YELLOW) Urine Appearance Turbid (CLEAR,HAZY) Urine pH Color interference Urine Specific Seymour 1.032 (1.003-1.035) Urine Protein Color interferencemg/dL Urine Glucose (UA) Color interferencemg/dL Urine Ketones Color interferencemg/dL Urine Occult Blood Color interference Urine Nitrite Color interference Urine Bilirubin Color interference Urine Urobilinogen Color interferencemg/dL Urine Leukocyte Esterase Color interference Urine RBC 0-2/hpf (0-2) Urine WBC 0-5/hpf (0-5) Urine Epithelial Cells Moderate/hpf (NONE-MOD) Urine Crystals Oxalic acid crystals (NONE Urine Bacteria Few/hpf (NONE-FEW) Urine Hyaline Casts None/lpf (NONE) Urine Granular Casts None seen (NONE SEEN) Urine Waxy Casts None seen (NONE SEEN) Urine Red Blood Cell Casts None seen (NONE SEEN) Urine White Blood Cell Casts None seen (NONE SEEN) Urine Mucus None seen (None Seen) Urine Trichomonas None seen (NONE SEEN) Urine Yeast None (NONE SEEN) Urinalysis Comment Urine Culture Reflexed Not indicated Hold Urine Received (Received) Erythrocyte Sedimentation Rate 2mm/hr (0-40) D-Dimer 0.57mg/L FEU (<0.50) Troponin T < 0.010ug/L (0.0-0.011) C-Reactive Protein < 0.1mg/dL (0.0-0.5) Procalcitonin 0.06ng/mL (0.00-0.08) Hold Tiwari Top Tube Received (Received) White Blood Count 4.5th/mm3 (3.8-10.1) Red Blood Count 4.84mil/mm3 (3.90-5.20) Hemoglobin 14.6g/dL (12.0-15.6) Hematocrit 41.4% (35.0-46.0) Mean Corpuscular Volume 85.5fL (81-100) Mean Corpuscular Hemoglobin 30.2pg (27.0-35.0) Mean Corpuscular Hemoglobin Concent 35.3% (32.0-37.0) Red Cell Distribution Width 12.7% (12.3-15.4) Platelet Count 119bil/L (150-400) Neutrophils (%) (Auto) 72.4% (40-74) Lymphocytes (%) (Auto) 17.8% (14-46) Monocytes (%) (Auto) 7.8% (4-12) Eosinophils (%) (Auto) 1.6% (0-5) Basophils (%) (Auto) 0.4% (0-3) Sodium Level 139mEq/L (134-144) Potassium Level 3.9mEq/L (3.5-5.2) Chloride Level 104mEq/L (97-108) Carbon Dioxide Level 18mmol/L (18-29) Blood Urea Nitrogen 8mg/dL (8-27) Creatinine 0.51mg/dL (0.57-1.00) Estimat Glomerular Filtration Rate 166mL/min (>59) Glucose Level 79mg/dL (60-99) Calcium Level 8.5mg/dL (8.5-10.1) Magnesium Level 1.5mg/dL (1.6-2.6) Total Bilirubin 1.2mg/dL (0.0-1.2) Aspartate Amino Transf (AST/SGOT) 22U/L (0-50) Alanine Aminotransferase (ALT/SGPT) 10U/L (0-32) Alkaline Phosphatase 38U/L (25-165) Total Protein 5.8g/dL (6.4-8.4) Albumin 3.9g/dL (3.4-5.0) Discharge Medications Discharge Medications Azathioprine (Azathioprine) 50 Mg Tablet 50 MG PO BID (Reported) Pantoprazole DR (Pantoprazole DR) 40 Mg Tablet.dr 40 MG PO DAILY Prescribed by: VANESSA AGARWAL MD Paroxetine (Paroxetine) 10 Mg Tablet 10 MG PO HS (Reported) Potassium Chloride (Potassium Chloride) 10 Meq Tab.er.prt 10 MEQ PO DAILY ( Reported) TAKE WITH FOOD Pyridostigmine Protivin (Pyridostigmine Protivin) 60 Mg Tablet 60 MG PO QID ( Reported) As needed Ibuprofen (Ibuprofen) 200 Mg Capsule 200-400 MG PO BID PRN PRN For Headache ( Reported) Meclizine (Bonine) 25 Mg Tab.chew 25 MG PO TID PRN PRN VERTIGO/NAUSEA (Reported ) Polyethylene Glycol 3350 (Miralax) 17 Gm Powd.pack 17 GM PO DAILY PRN PRN For Constipation Prescribed by: VANESSA AGARWAL MD Followup Plan Disposition: The patient is being discharged home in the care of her daughters. Discharge Diet: Heart Healthy Discharge Activity: No restrictions (The patient may resume usual activity as tolerated.) Follow-up Provider: Kentrell Munoz MD Follow-up with PCP in: 1 week Time spent Time spent on discharging this patient was greater than 35 minutes, over half of which was involved in counseling and coordination of care. Iván Agarwal MD Nov 25, 2016 00:06
== END 2016-11-24 16:54 | disposition home or self-care (01) ==
LOC: SED 15:54 → INTOOBSV 23:55 → OSC 23:55
PROVIDERS: ADMIT Internal Medicine; ATTEND Internal Medicine
DX: E86.0 Dehydration (principal); R42 Dizziness and giddiness; R55 Syncope and collapse; R10.13 Epigastric pain; K52.9 Noninfective gastroenteritis and colitis, unspecified; E87.6 Hypokalemia; R91.8 Other nonspecific abnormal finding of lung field; G70.00 Myasthenia gravis without (acute) exacerbation; F32.9 Major depressive disorder, single episode, unspecified; I10 Essential (primary) hypertension; G89.29 Other chronic pain; M19.90 Unspecified osteoarthritis, unspecified site; Z88.8 Allergy status to other drugs, medicaments and biological substances; Z96.641 Presence of right artificial hip joint; Z90.710 Acquired absence of both cervix and uterus; Z66 Do not resuscitate
CPT/HCPCS: 36415; 70450; 71275; 74177; 80053; 81000; 83735; 84145; 84484; 85025; 85378; 85651; 86140; 93005; 96374; 96375; 96376; 97161; 97530; 99285; G0378; J1644; J2405; J3010; J3475; J7030; J7500; Q9967